=== PATIENT | male | born 1980 | race Two or more races ===

== ENCOUNTER 2024-01-04 03:19 | Emergency (ER) | payer OTHER, SELFPAY ==
[2024-01-04] VITALS (11 sets, daily range): BP systolic 93–124; BP diastolic 64–86; BMI 29.3
[2024-01-04 04:56] LABS: % Basophils 0.7 % (0-2); % Eosinophils 1.7 % (0-6); % Immature Granulocytes 0.6 % (0-0.5); % Lymphocytes 35.7 % (20.5-51.1); % Monocytes 6.3 % (1.7-9.3); Absolute Basophils 0.1 10^3/uL (0-0.2); Absolute Eosinophils 0.2 10^3/uL (0-0.7); Absolute Immature Granulocytes 0.1 10^3/uL (0-0.05); Absolute Lymphocytes 3.2 10^3/uL (1.2-3.4); Absolute Monocytes 0.6 10^3/uL (0.1-0.6); Absolute Neutrophils 4.9 10^3/uL (1.4-6.5); Hematocrit 51.3 % (39.0-52.0); Hemoglobin 17.5 g/dL (13.0-18.0); Mean Corp Hgb Conc. 34.1 g/dL (33.0-37.0); Mean Corpuscular Hgb 26.4 pg (27.0-31.0); Mean Corpuscular Volume 77.5 fL (80.0-94.0); Mean Platelet Volume 9.4 fL (7.4-10.4); Nucleated Red Blood Cells % 0 % (-); Platelet Count 291 10^3/uL (130-400); Red Blood Cell Count 6.62 10^6/uL (4.70-6.10); Red Cell Dist. Width 14.8 % (11.5-14.5); White Blood Cell Count 8.8 10^3/uL (4.8-10.8)
[2024-01-04 05:00] LABS: Urine Albumin Negative (Neg - Trace); Urine Bilirubin Negative (Negative); Urine Character Clear (Clear); Urine Color Yellow; Urine Glucose 3+ (Negative); Urine Ketone Negative (Negative); Urine Leukocyte Negative (Negative); Urine Nitrite Negative (Negative); Urine Occult Blood Negative (Negative); Urine Specific Gravity 1.005 (<1.030); Urine Urobilinogen Negative (Neg - 1+); Urine pH 6.5 (5.0-9.0)
[2024-01-04 05:20] LABS: ALT (SGPT) 30 U/L (0-50); AST (SGOT) 32 U/L (17-59); Albumin 4.2 g/dl (3.5-5.0); Alkaline Phosphatase 49 U/L (38-126); Blood Urea Nitrogen 18 mg/dl (9-20); Calcium 9.3 mg/dl (8.4-10.2); Carbon Dioxide 24 mmol/L (22-30); Chloride 105 mmol/L (98-107); Estimated Creatinine Clearance 119 ml/min; Glucose 109 mg/dl (70-99); Potassium 4.4 mmol/L (3.5-5.1); Sodium 136 mmol/L (135-145); Total Bilirubin 0.6 mg/dl (0.2-1.3); Total Protein 7.1 g/dl (6.3-8.2); eGFR > 60.00
--- NOTE | 2024-01-04 06:49 | ED.GENMED ---
History of Present Illness
General
Chief Complaint: Abdominal Pain
Source: patient
Exam Limitations: none
Time Seen by Provider: 01/04/24 06:37
Nursing documentation reviewed up to this point in time: agreed with
Travel History
Have you had any contact with someone who has COVID-19?: No
Do you have any symptoms of coronavirus? Fever > 100 degrees, chills, cough, shortness of breath, sore throat, loss of taste or smell, muscle aches, or headache?: No
History of Present Illness
History of Present Illness:
43-year-old male presents emergency department complaining of bilateral abdominal pain, flank pain. Denies any nausea or vomiting. Pain is worse in left lower quadrant. He has a history of ulcers. He did not take any medicines for the pain.
Past History
Past History
ED Past Medical History: GERD and Other
ED Past Surgical History: Cholecystectomy and Other (Abscess I&D)
Social History
Personal:
Living: with family
Employment: Employed
Family History
Family History: Other
Review of Systems
Review of Systems
Allergies reviewed?: Yes
All Other Systems: Not applicable
Constitutional: Reports no symptoms
EENT: Reports no symptoms
Respiratory: Reports no symptoms
Cardiac: Reports no symptoms
ABD/GI: Reports abdominal pain; Denies nausea, vomiting or diarrhea
: Reports no symptoms
Musculoskeletal: Reports no symptoms
Skin: Reports no symptoms
Neurological: Reports no symptoms
Endocrine: Reports no symptoms
Hematologic/Lymphatic: Reports no symptoms
Psychiatric: Reports no symptoms
Phy Exam
Physical Exam
Physical Exam:
Physical Exam
General: no apparent distress, not acutely ill
Neck: supple. no meningeal signs. normal posterior pharynx
Heart: s1/s2 regular rate and rhythm, no murmur. equal radial
pulses.
HEENT: Pupils equal round reactive to light, EOMI
Lungs: no acute respiratory distress. clear bilaterally
Abdomen: normal bowel sounds. Left lower quadrant tenderness. no CVAT
Neuro: alert and oriented. no focal neurological deficits cranial nerves II through XII intact
Skin: no rash
Psychiatric: well kept. interactive and cooperative
Extremities: no edema. no calf tenderness. negative homans. good distal pulses
Course
Orders/Labs/Results
Orders:
Orders
01/04/24 04:51
CMP [Comprehensive Metabolic Panel] Urgent
Complete Blood Count/With Diff Urgent
Urinalysis Reflex To Culture Urgent
Date Specimen was Collected: 01/04/24
Time Specimen was Collected: 04:46
01/04/24 06:48
CT Abd/pelvis W Iv Cont Urgent
Comment:
Reason For Exam: bilateral abd pain, LLQ tenderness, 12 hours
Acetaminophen [Tylenol] 650 mg PO NOW STA
Abnormal Lab Results
01/04/24
04:51
RBC 6.62 H 10^6/uL
(4.70-6.10)
MCV 77.5 L fL
(80.0-94.0)
MCH 26.4 L pg
(27.0-31.0)
RDW 14.8 H %
(11.5-14.5)
Abs Immat Gran (auto) 0.1 H 10^3/uL
(0-0.05)
Immature Gran % 0.6 H %
(0-0.5)
Glucose 109 H mg/dl
(70-99)
Urine Glucose 3+ A
(Negative)
01/04/24 04:51
01/04/24 04:51
Vital Signs
Initial and Last Documented VS:
Initial Vital Signs
Temp Pulse Resp BP Pulse Ox
99 F 80 22 124/86 94
01/04/24 03:33 01/04/24 03:33 01/04/24 03:33 01/04/24 03:33 01/04/24 03:33
Last Documented Vital Signs
Temp Pulse Resp BP Pulse Ox
98.4 F 62 18 95/67 94
01/04/24 10:03 01/04/24 10:03 01/04/24 10:03 01/04/24 10:03 01/04/24 10:03
MDM/Problems Addressed
Differential Diagnosis Includes:
Diverticulitis, proctitis, UTI
MDM/Problems Addressed:
43-year-old male with bladder wall thickening, unclear. Patient will follow-up with urology, circumferential wall thickness of rectum, suspicious for proctitis. Patient will follow-up with gastroenterology. Return precautions given.
Chronic conditions affecting care: Previous abdomnial surgery (Cholecystectomy)
*Radiology
Radiology exam reviewed: radiology read reviewed (CT abdomen pelvis shows bladder wall thickening and rectal thickening suspicious for proctitis.)
*Pulse Oximetry
Patient hypoxic: no
*EKG
Interpreted by ED Provider?: NA
*[place] [employer] Interpretation
Rate: [place] [employer]- N/A
*Critical Care Note
Total Time (30-74mins, 75-104mins- exclusive of procedures): Not Applicable
Patient Management
Social determinants of health affecting care: Living situation
Escalation/DeEscalation of care consider admission/obs:
Admit not indicated
ED Attending Note
-
Portions of this chart may have been created with voice recognition software.� Occasional wrong word or��sound alike� substitutions may have occurred due to the inherent limitations of voice recognition software.
Discharge Plan
Departure
Patient Disposition: Home (Routine Discharge)
Date of Disposition: 01/04/24
Time of Disposition: 09:32
Patient with high blood pressure during this ER visit?: No
Condition: Good
Discharge Problem:
Acute proctitis, Abdominal pain, Bladder wall thickening, Hernia
Instructions: Proctitis, Abdominal Hernia (DC), Abdominal Pain
Prescriptions:
No Action
Unobtainable
0
Referrals:
Franco Chen MD [Active] - Call in 1-3 days for appt
Hugh Quintanilla MD [Family Provider] - Call in 1-3 days for appt
Shaq Kilgore MD [Active] - Call in 1-3 days for appt
Amy Banks MD [Active] - Call in 1-3 days for appt
Activity Restrictions/Additional Instructions:
Follow up with gastroenterology and urology. Return for any concerns.
Interventions
Interventions:
*Risk Screen - Suicide Last Done: 01/04/24 05:00
*General Assessment Last Done: 01/04/24 04:49
*Neglect/Abuse Screening Last Done: 01/04/24 05:00
ED- Fall Risk Assessment Last Done: 01/04/24 05:00
*ED COVID-19 Vaccine History Last Done: 01/04/24 05:00
*Nursing Disposition Last Done: 01/04/24 10:03
FU-Nmbwsk-Dpxzcpkhor Assessment Last Done: 01/04/24 04:46
Discharge Date and Time
Discharge Date/Time: 01/04/24 10:00
[2024-01-04] MEDS: TYLENOL 650 MG PO (06:59)
== END 2024-01-04 10:00 | disposition home or self-care (01) ==
LOC: EMR 03:19
PROVIDERS: Emergency Medicine; EMERGENCY PHYSICIAN Emergency Medicine; FAMILY PHYSICIAN Family Medicine
DX: K62.89 Other specified diseases of anus and rectum (principal); N32.89 Other specified disorders of bladder; K44.9 Diaphragmatic hernia without obstruction or gangrene; K21.9 Gastro-esophageal reflux disease without esophagitis; E11.9 Type 2 diabetes mellitus without complications; Z79.84 Long term (current) use of oral hypoglycemic drugs; Z86.16 Personal history of COVID-19; Z90.49 Acquired absence of other specified parts of digestive tract
CPT/HCPCS: 99285; 74177; 80053; 81003; 85025; Q9967

== ENCOUNTER 2024-02-29 02:45 | Emergency (ER) | payer OTHER, SELFPAY ==
[2024-02-29 02:51] VITALS: BP 112/78
[2024-02-29 07:24] LABS: % Basophils 0.7 % (0-2); % Eosinophils 3.1 % (0-6); % Immature Granulocytes 0.4 % (0-0.5); % Lymphocytes 47.5 % (20.5-51.1); % Monocytes 8.1 % (1.7-9.3); % Neutrophils 40.2 % (42.2-75.2); Absolute Basophils 0.1 10^3/uL (0-0.2); Absolute Eosinophils 0.2 10^3/uL (0-0.7); Absolute Lymphocytes 3.2 10^3/uL (1.2-3.4); Absolute Monocytes 0.6 10^3/uL (0.1-0.6); Absolute Neutrophils 2.7 10^3/uL (1.4-6.5); Hematocrit 54.1 % (39.0-52.0); Hemoglobin 17.8 g/dL (13.0-18.0); Mean Corp Hgb Conc. 32.9 g/dL (33.0-37.0); Mean Corpuscular Hgb 26.2 pg (27.0-31.0); Mean Corpuscular Volume 79.6 fL (80.0-94.0); Mean Platelet Volume 9.1 fL (7.4-10.4); Nucleated Red Blood Cells % 0 % (-); Platelet Count 287 10^3/uL (130-400); Red Cell Dist. Width 15.1 % (11.5-14.5); White Blood Cell Count 6.8 10^3/uL (4.8-10.8)
--- NOTE | 2024-02-29 07:27 | ED.GENMED ---
History of Present Illness
General
Chief Complaint: Abdominal Pain
Time Seen by Provider: 02/29/24 07:23
Travel History
Have you had any contact with someone who has COVID-19?: No
Do you have any symptoms of coronavirus? Fever > 100 degrees, chills, cough, shortness of breath, sore throat, loss of taste or smell, muscle aches, or headache?: No
History of Present Illness
History of Present Illness:
43-year-old male presents to the emergency department for evaluation of epigastric pain and bloating for the past 6 days. He underwent a endoscopy at [facility] on the , he is not aware of the results as he has not yet followed up with his
naturopath. Denies associated fevers or chills. Pain does not worsen after eating. States that his GI doctor did prescribe pain medication however he has not started taking this yet. Prior abdominal surgical history includes
cholecystectomy
Past History
Past History
ED Past Medical History: GERD and Other
ED Past Surgical History: Cholecystectomy and Other (Abscess I&D)
Social History
Personal:
Living: with family
Employment: Employed
Family History
Family History: Other
Review of Systems
Review of Systems
Allergies reviewed?: Yes
All Other Systems: ROS reviewed and negative except as documented in HPI and ROS
Phy Exam
Physical Exam
Physical Exam:
GEN: Well appearing, NAD, WDWN
Eyes: PERRLA, EOMs intact, no scleral icterus
HENT: NCAT, oral mucosa moist
Lungs: CTAB, no wheezes, rales, rhonchi, normal chest wall excursion
Cardiac: RRR, no M/R/G
Abdomen: S, NT, ND, NABS, no masses or hepatosplenomegaly
Neuro: AO x 3
MSK: No gross deformity or ecchymosis. No edema. No digital clubbing
Skin: No rashes, petechiae. Normal color, no pallor or jaundice.
Psych: Calm, cooperative, proper hygiene
Course
Orders/Labs/Results
Orders:
Orders
02/29/24 07:11
CMP [Comprehensive Metabolic Panel] Urgent
Complete Blood Count/With Diff Urgent
02/29/24 07:34
CT Abd/Pel (IV only)-DH only Urgent
Comment:
Reason For Exam: epigastric pain/bloating post EGD
Morphine Sulfate 4 mg IV NOW STA
02/29/24 07:42
Lipase Urgent
Abnormal Lab Results
02/29/24 02/29/24
07:11 07:42
RBC 6.80 H 10^6/uL
(4.70-6.10)
Hct 54.1 H %
(39.0-52.0)
MCV 79.6 L fL
(80.0-94.0)
MCH 26.2 L pg
(27.0-31.0)
MCHC 32.9 L g/dL
(33.0-37.0)
RDW 15.1 H %
(11.5-14.5)
Neutrophils % 40.2 L %
(42.2-75.2)
BUN 22 H mg/dl
(9-20)
Glucose 111 H mg/dl
(70-99)
Lipase 396 H U/L
(23-300)
02/29/24 07:11
02/29/24 07:11
Vital Signs
Initial and Last Documented VS:
Initial Vital Signs
Temp Pulse Resp BP Pulse Ox
98.2 F 80 22 112/78 94
02/29/24 02:51 02/29/24 02:51 02/29/24 02:51 02/29/24 02:51 02/29/24 02:51
Last Documented Vital Signs
Temp Pulse Resp BP Pulse Ox
98.2 F 65 16 115/88 96
02/29/24 02:51 02/29/24 07:30 02/29/24 07:30 02/29/24 09:11 02/29/24 08:29
MDM/Problems Addressed
MDM/Problems Addressed:
Patient CT was ordered due to recent intervention, overall workup was unremarkable, no clinical concern for perforation. May represent gastritis or peptic ulcer disease given the location, recommend he start the medications prescribed by his GI
doctor
*Critical Care Note
Total Time (30-74mins, 75-104mins- exclusive of procedures): Not Applicable
ED Attending Note
-
Portions of this chart may have been created with voice recognition software.� Occasional wrong word or��sound alike� substitutions may have occurred due to the inherent limitations of voice recognition software.
Discharge Plan
Departure
Patient Disposition: Home (Routine Discharge)
Date of Disposition: 02/29/24
Time of Disposition: 09:06
Patient with high blood pressure during this ER visit?: No
Discharge Problem:
Abdominal pain
Instructions: Abdominal Pain
Prescriptions:
No Action
Unobtainable
0
Referrals:
PRIVATE,PHYSICIAN [Family Provider] -
Activity Restrictions/Additional Instructions:
See your GI doctor for follow up
Interventions
Interventions:
*Risk Screen - Suicide Last Done: 02/29/24 07:31
*General Assessment Last Done: 02/29/24 07:31
*Neglect/Abuse Screening Last Done: 02/29/24 07:31
ED- Fall Risk Assessment Last Done: 02/29/24 07:32
*ED COVID-19 Vaccine History Last Done: 02/29/24 07:31
*Nursing Disposition Last Done: 02/29/24 09:13
VW-Cihglj-Sifzglapde Assessment Last Done: 02/29/24 07:31
Discharge Date and Time
Discharge Date/Time: 02/29/24 09:35
Print Language: UPPER SORBIAN
[2024-02-29 07:30] VITALS: BP 110/88
[2024-02-29 07:37] LABS: ALT (SGPT) 33 U/L (0-50); AST (SGOT) 32 U/L (17-59); Albumin 4.7 g/dl (3.5-5.0); Alkaline Phosphatase 47 U/L (38-126); Blood Urea Nitrogen 22 mg/dl (9-20); Calcium 9.5 mg/dl (8.4-10.2); Carbon Dioxide 23 mmol/L (22-30); Chloride 104 mmol/L (98-107); Glucose 111 mg/dl (70-99); Potassium 4.2 mmol/L (3.5-5.1); Sodium 135 mmol/L (135-145); Total Bilirubin 0.7 mg/dl (0.2-1.3); Total Protein 7.5 g/dl (6.3-8.2); eGFR > 60.00
[2024-02-29] MEDS: MORPHINE SULFATE 4 MG IV (07:48)
[2024-02-29 08:00] VITALS: BP 108/82
[2024-02-29 08:13] LABS: Lipase 396 U/L (23-300)
[2024-02-29 09:11] VITALS: BP 115/88
== END 2024-02-29 09:35 | disposition home or self-care (01) ==
LOC: EMR 02:45
PROVIDERS: Physician Assistant; EMERGENCY PHYSICIAN Emergency Medicine
DX: R10.13 Epigastric pain (principal); R14.0 Abdominal distension (gaseous); K21.9 Gastro-esophageal reflux disease without esophagitis; Z90.49 Acquired absence of other specified parts of digestive tract; Z98.890 Other specified postprocedural states
CPT/HCPCS: 99284; 96374; 74177; 80053; 83690; 85025; Q9967